=== PATIENT | male | born 1950 | race Caucasian/White ===

== ENCOUNTER 2023-01-08 00:32 | Emergency (ER) | payer MEDICARE ==
--- NOTE | 2023-01-08 02:49 | ERPHSYRPT ---
- History of Present Illness Source: patient Exam Limitations: no limitations Patient Subjective Stated Complaint: pt states I was going down into my family room and caught my heel on the step Triage Nursing Assessment: pt ambulated into the er with assist of crutches; pt is axo x4; c/o rt knee; no respiratory distress present; skin is PDW to the touch; rt knee has bruising to the outer knee; strong rt pedal pulse; good cap refill to [facility]; limited ROM to rt knee; hypertensive; tachycardic Physician History: 72yo M presents to ER after a fall. He lost his footing and fell directly on his right knee. He reports severe 8/10 anterior knee pain and swelling. He is unable to move the knee, but can bear some weight on the knee after the injury. Occurred: just prior to arrival Reason for Fall: slipped Injuries/Pain Location: lower extremity (right knee) Loss of Consciousness: no loss of consciousness Quality: throbbing Severity of Pain-Max: severe Severity of Pain-Current: severe Modifying Factors: Improves With: cold therapy, rest. Worsens With: movement Associated Symptoms (Fall): denies symptoms Allergies/Adverse Reactions: oxytetracycline [From Terramycin] Allergy (Verified 01/08/23 00:42) oxytetracycline HCl [From Terramycin] Allergy (Verified 01/08/23 00:42) Penicillins Allergy (Verified 01/08/23 00:42) Home Medications: Albuterol Sulfate [Albuterol Sulfate Hfa] 2 puff IH Q6HPRN PRN 01/08/23 [History] Aspirin [Aspirin EC] 81 mg PO DAILY 01/08/23 [History] Metoprolol Succinate 25 mg Xl* [Toprol-Xl 25MG Tablets] 25 mg PO DAILY 01/08 [History] Rosuvastatin Calcium 30 mg PO DAILY 01/08/23 [History] buPROPion HCL [Wellbutrin Xl] 150 mg PO DAILY 01/08/23 [History] Hx Tetanus, Diphtheria Vaccination/Date Given: Yes Hx Influenza Vaccination/Date Given: Yes Hx Pneumococcal Vaccination/Date Given: Yes Travel Risk - International Travel Have you traveled outside of the country in past 3 weeks: No - Coronavirus Screening Are you exhibiting any of the following symptoms?: No Close contact with a COVID-19 positive Pt in past 14-21 Days: No - Vaccine Status Have you recieved a Covid-19 vaccination: Yes Junior Programmer Analyst: Unknown - Vaccination Dates Dates if Unknown: 2020 - Review of Systems Musculoskeletal: Joint Pain (right knee) Neurological: No Symptoms - Past Medical History Pertinent Past Medical History: Yes Neurological History: No Pertinent History ENT History: Cataracts Cardiac History: High Cholesterol, Hypertension Respiratory History: COPD Endocrine Medical History: No Pertinent History Musculoskeletal History: No Pertinent History GI Medical History: Hemorrhoids, Polyps History: No Pertinent History Psycho-Social History: Depression Male Reproductive Disorders: No Pertinent History - Past Surgical History Past Surgical History: Yes Neuro Surgical History: No Pertinent History Cardiac: No Pertinent History Gastrointestinal: Hemorrhoidectomy Genitourinary: No Pertinent History Musculoskeletal: No Pertinent History, Orthopedic Surgery Male Surgical History: No Pertinent History Other Surgical History: polyp removed, rt ring finger surgery - Social History Smoking Status: Light tobacco smoker Exposure to second hand smoke: Yes Drug Use: none Patient Lives Alone: Yes - Nursing Vital Signs Nursing Vital Signs: Initial Vital Signs Temperature 97.7 F 01/08/23 00:47 Pulse Rate 112 H 01/08/23 00:47 Respiratory Rate 24 01/08/23 00:47 Blood Pressure 151/96 01/08/23 00:47 O2 Sat by Pulse Oximetry 94 L 01/08/23 00:47 Pain Scale Pain Intensity 4 - Tim Coma Score Best Eye Response (Tim): (4) open spontaneously Best Verbal Response (Tim): (5) oriented Best Motor Response (Charlotte): (6) obeys commands [place] Total: 15 - Physical Exam General Appearance: no apparent distress Head Injury: no evidence of injury Extremity Exam: bony point tenderness, pain with movement, swelling (right knee), No deformities, No lacerations Neurologic Exam: alert, oriented x 3, cooperative Skin Exam: normal color, warm, dry, No abrasion SpO2 Interpretation: normal SpO2: 93 O2 Delivery: Room Air - Radiology Exams Right Knee X-ray Interpretation: Interpreted by me, No Fracture (medial compartment OA) - Progress Progress: pain not gone completely Progress Note: No evidence of fx on XR. US evaluation at bedside showed no signs of patellar tendon rupture. Encouraged patient to f/u w/ ortho clinic for further evaluation. Educated on need for compression bandage, ice, elevation and NWB until further evaluation. Counseled pt/family regarding: need for follow-up, rad results Medical Desision Making - Diagnostic Testing Diagnostic test were ordered, analyzed, and reviewed by me: Yes Radiological Interpretation: Interpreted by me - Risk of complications Low Risk: Low risk of morbidity from additional dx testing or treatment - Departure Departure Disposition: Home Clinical Impression: Right knee pain, Swelling of right knee joint, Internal derangement of knee Condition: Stable Critical Care Time: No Referrals: EDDY QUEEN DO [Primary Care Provider] - Follow up/PCP as directed Instructions: Knee Pain (DC) Outpatient Orders: Ortho Referral Time Frame: 1 Day, Facility: [facility], Location: ORTHO CLINIC
[2023-01-08 02:54] VITALS: BP 130/85; PULSE 100
--- NOTE | 2023-01-08 08:41 | XRAY ---
Indication: Pain and swelling following fall. Comparison: None 4 view right knee demonstrates osteopenia, minimal/mild tricompartmental degenerative changes with tiny anterior heterotopic ossifications, faint vascular calcifications, and moderate anterior subcutaneous soft tissue swelling/edema. No other bony, articular, or soft tissue abnormalities.
[2023-01-09 19:23] VITALS: O2SAT 93
== END 2023-01-08 03:09 | disposition home or self-care (01) ==
LOC: ED 00:32
DX: M25.561 Pain in right knee (principal); M25.461 Effusion, right knee; M23.91 Unspecified internal derangement of right knee; S89.91XA Unspecified injury of right lower leg, initial encounter; W10.8XXA Fall (on) (from) other stairs and steps, initial encounter; Y92.008 Other place in unspecified non-institutional (private) residence as the place of occurrence of the external cause; E78.5 Hyperlipidemia, unspecified; I10 Essential (primary) hypertension; Z79.899 Other long term (current) drug therapy; Z72.0 Tobacco use
CPT/HCPCS: 73564; 99283